=== PATIENT | male | born 1950 | race Caucasian/White ===

== ENCOUNTER 2020-06-21 08:59 | Emergency (ER) | payer MEDICARE, SELFPAY ==
[2020-06-21] VITALS (21 sets, daily range): BP systolic 115–162; BP diastolic 74–96; PULSE 55–67; RESP 13–24; TEMP 36.4; O2SAT 91–100
--- NOTE | 2020-06-21 09:41 | ED_ITS ---
HPI - Skin/Abscess/Foreign Bdy General Chief complaint: Skin/Abscess/Foreign Body Stated complaint: jaundice x1 day Time Seen by Provider: 06/21/20 09:36 Source: patient Mode of arrival: Ambulatory Limitations: no limitations History of Present Illness HPI narrative: This is a 69-year-old male comes to the emergency department with complaint of painless jaundice. Patient states he noticed that his urine was dark earlier in the week, he also notices a little constipated and increased his fluid intake took a stool softener. He states his urine lined up and then became darker again which he noticed yesterday and he noticed that his skin seemed yellow today. He also noticed that her stools were light in color as well. Patient denies any fevers or chills. He denies any chest pain or new shortness of breath. Patient denies any abdominal pain. He does have maybe some mild discomfort but nothing that he really appreciates strongly. He denies any nausea or vomiting. He denies any new diarrhea or black or bloody stools. Besides having some dark urine he does not appreciate any other symptoms or urine changes. Patient has not had similar symptoms in the past. He has never been told he has any liver disease. He takes medication for hypertension and dyslipidemia and used to take a potassium supplement but quit a year ago. Patient has a history of injections in his back. Removal of colon polyps and a history of a pulmonary embolism which they believe was provoked by a marathon of TV watching over 1 weekend. He was on warfarin for several years, did have genetic testing which was negative and no longer takes anticoagulant. His only allergies to penicillins. He is accompanied by his and recently moved to [facility] from [place]. Related Data Home Medications Medication Instructions Recorded Confirmed atenolol-chlorthalidone 1 tab PO DAILY 06/21/20 06/21/20 potassium chloride [Klor-Con M10] meq PO 06/21/20 simvastatin mg 06/21/20 Allergies Allergy/AdvReac Type Severity Reaction Status Date / Time Penicillins Allergy Verified 06/21/20 09:42 Review of Systems Review of Systems ROS Unobtainable: All systems reviewed & are unremarkable except as noted in HPI and below Patient History Medical History (Updated 06/21/20 @ 10:01 by Tamara Mcgraw DO) Pulmonary embolism Social History Smoking Status: Never smoker Exam Narrative Exam Narrative: GEN: well nourished, jaundiced male alert and oriented x 3, patient appears to be in mild distress. HEENT: Atraumatic, pupils are equal round reactive to light,, positive for scleral icterus, extraocular movements are intact, nares are clear, TMs are clear with no fluid, there is no conjunctival pallor. Throat is clear without any exudates, erythema, tonsillar enlargement or uvular deviation HEART: Regular rate and rhythm without murmur, clicks, rubs. No carotid bruits, pulses are equal in upper and lower extremities LUNGS:Lungs clear to auscultation, no wheezes, rales, crackles, chest moves symmetrically ABD:bowel sounds normal, soft, non-tender, no guarding, rebound, rigidity, no masses noted, no hepatosplenomegaly appreciated, mildly distended. :No CVA tenderness MSCL: Non-tender, full range of motion, normal gait NEURO:CN 2-12 intact, sensation normal SKIN: Jaundiced Initial Vital Signs Initial Vital Signs: Vital Signs Temperature 97.5 F L 06/21/20 09:15 Pulse Rate 59 L 06/21/20 09:15 Respiratory Rate 17 06/21/20 09:15 Blood Pressure 162/96 H 06/21/20 09:15 Pulse Oximetry 100 06/21/20 09:15 Course Orders Ordered: ED Orders 06/21/20 14:50 CT abdomen pelvis w con Stat Discontinued Medications Potassium Chloride (Potassium Chloride 20 Meq Tab) 40 meq PO NOW ONE Stop: 06/21/20 10:42 Last Admin: 06/21/20 11:25 Dose: 40 meq Documented by: WINNIE Reevaluation(s) Reevaluation #1: Updated patient on findings from today. Trying to get MRCP here in ED but patient will need transfer for GI. Time: 11:19 Time: 15:26 Consultations Consultation #1: GI recommends CT abdomen with pancreatic protocol and IV contrast. If no obstructing stone patient can be followed up as outpatient. [facility]. Time: 14:55 Consultation #2: Call out to re-consult with GI, Gordon Pratt. Plan for patient to follow up Wednesday. Labs, imaging reports and patient contact information faxed to staff and they will reach out to patient. Recommend outpatient follow up. Plan to follow up on Wednesday with Tyrell GONZALEZ. Time: 17:50 Vital Signs Vital signs: Vital Signs - 8 hr 06/21/20 11:30 06/21/20 11:31 06/21/20 12:31 Pulse Rate 61 61 61 Respiratory Rate 24 Blood Pressure 129/81 Pulse Oximetry 91 99 92 06/21/20 12:33 06/21/20 13:00 06/21/20 13:30 Pulse Rate 59 L 58 L Respiratory Rate 21 15 16 Blood Pressure 118/79 125/74 121/74 Pulse Oximetry 98 98 96 06/21/20 14:00 06/21/20 14:30 06/21/20 15:00 Pulse Rate 58 L 56 L 67 Respiratory Rate 22 13 Blood Pressure 122/78 126/75 Pulse Oximetry 98 95 06/21/20 15:30 06/21/20 16:00 06/21/20 16:21 Pulse Rate 58 L 55 L 65 Respiratory Rate 13 24 Blood Pressure 126/79 Pulse Oximetry 96 95 97 06/21/20 16:30 06/21/20 17:00 Pulse Rate 55 L 67 Respiratory Rate 17 24 Blood Pressure 115/75 126/83 Pulse Oximetry 96 97 MDM - Skin/Abscess/Foreign Bdy Lab Data Attestation: I reviewed the patient's lab results. Result diagrams: 06/21/20 09:42 06/21/20 09:42 Labs: Lab Results 06/21/20 06/21/20 06/21/20 Range/Units 09:37 09:42 09:42 WBC 5.9 (4.5-11.0) X10^3/uL RBC 4.93 (4.5-5.9) X10^6/uL Hgb 15.4 (13.5-17.5) g/dL Hct 45.0 (41-53) % MCV 91.3 (80-100) fL MCH 31.3 (26-34) PG MCHC 34.3 (30-36) % RDW 13.3 (11.6-14.8) % Plt Count 178 (150-400) X10^3/uL Neut % (Auto) 67.9 (50-75) % Lymph % (Auto) 18.7 L (25-40) % Barnes % (Auto) 10.6 (3-14) % Eos % (Auto) 1.9 L (2-4) % Baso % (Auto) 0.9 (0-2) % Neut # (Auto) 4000 (3043-4549) /uL Lymph # (Auto) 1100 (9135-3829) /uL Barnes # (Auto) 600 (0-900) /uL Eos # (Auto) 100 (0-450) /uL Baso # (Auto) 100 (0-100) /uL PT 11.3 (10.1-12.7) SECONDS INR 1.0 (0.9-1.3) APTT 32 (26.4-36.2) SECONDS Sodium (137-145) mmol/L Potassium (3.4-5.1) mmol/L Chloride (98-107) mmol/L Carbon Dioxide (22-32) mmol/L BUN (9-20) mg/dL Creatinine (0.66-1.25) mg/dL Estimated GFR (>60) mL/min BUN/Creatinine Ratio (6-22) Glucose (80-110) mg/dL Calcium (8.4-10.2) mg/dL Total Bilirubin (0.2-1.3) mg/dL Conjugated Bilirubin (0.0-0.3) md/dL Unconjugated Bilirubin (0.0-1.1) mg/dL AST (17-59) IU/L ALT (<50) IU/L Alkaline Phosphatase (38-126) U/L Total Protein (6.3-8.2) g/dL Albumin (3.5-5.0) g/dL Globulin (1.7-4.1) g/dL Albumin/Globulin Ratio (1.0-2.8) Lipase (23-300) U/L Urine Color [place] Urine Appearance Clear Urine pH 6.0 (4.5-8.0) Ur Specific [place] 1.020 (1.000-1.035) Urine Protein Negative (Negative) Urine Glucose (UA) Trace H (Negative) g/dL Urine Ketones Negative (NEGATIVE) Urine Occult Blood Negative (Negative) Urine Nitrate Negative (Negative) Urine Bilirubin 2+ H (NEGATIVE) Ur Bilirubin Confirm Positive H (Negative) Urine Urobilinogen 0.2 (0.2) E.U./dL Ur Leukocyte Esterase Negative (NEGATIVE) Urine RBC None seen (0-5/HPF) Urine WBC None seen (0-5/HPF) Urine Bacteria None seen (None) Ur Culture Indicated? Cult not indicated SARS-CoV-2 (PCR) (Negative) 06/21/20 06/21/20 Range/Units 09:42 09:42 WBC (4.5-11.0) X10^3/uL RBC (4.5-5.9) X10^6/uL Hgb (13.5-17.5) g/dL Hct (41-53) % MCV (80-100) fL MCH (26-34) PG MCHC (30-36) % RDW (11.6-14.8) % Plt Count (150-400) X10^3/uL Neut % (Auto) (50-75) % Lymph % (Auto) (25-40) % Barnes % (Auto) (3-14) % Eos % (Auto) (2-4) % Baso % (Auto) (0-2) % Neut # (Auto) (1864-4831) /uL Lymph # (Auto) (2134-6932) /uL Barnes # (Auto) (0-900) /uL Eos # (Auto) (0-450) /uL Baso # (Auto) (0-100) /uL PT (10.1-12.7) SECONDS INR (0.9-1.3) APTT (26.4-36.2) SECONDS Sodium 136 L (137-145) mmol/L Potassium 3.1 L (3.4-5.1) mmol/L Chloride 99 (98-107) mmol/L Carbon Dioxide 28 (22-32) mmol/L BUN 15 (9-20) mg/dL Creatinine 0.77 (0.66-1.25) mg/dL Estimated GFR > 60.0 (>60) mL/min BUN/Creatinine Ratio 19.5 (6-22) Glucose 112 H (80-110) mg/dL Calcium 9.8 (8.4-10.2) mg/dL Total Bilirubin 9.5 H (0.2-1.3) mg/dL Conjugated Bilirubin 5.0 H (0.0-0.3) md/dL Unconjugated Bilirubin 1.9 H (0.0-1.1) mg/dL AST 447 H (17-59) IU/L ALT 751 H (<50) IU/L Alkaline Phosphatase 203 H (38-126) U/L Total Protein 7.9 (6.3-8.2) g/dL Albumin 4.5 (3.5-5.0) g/dL Globulin 3.4 (1.7-4.1) g/dL Albumin/Globulin Ratio 1.3 (1.0-2.8) Lipase 276 (23-300) U/L Urine Color Urine Appearance Urine pH (4.5-8.0) Ur Specific [place] (1.000-1.035) Urine Protein (Negative) Urine Glucose (UA) (Negative) g/dL Urine Ketones (NEGATIVE) Urine Occult Blood (Negative) Urine Nitrate (Negative) Urine Bilirubin (NEGATIVE) Ur Bilirubin Confirm (Negative) Urine Urobilinogen (0.2) E.U./dL Ur Leukocyte Esterase (NEGATIVE) Urine RBC (0-5/HPF) Urine WBC (0-5/HPF) Urine Bacteria (None) Ur Culture Indicated? SARS-CoV-2 (PCR) Negative (Negative) Imaging Data US - abdomen: Attestation: I personally reviewed and interpreted this imaging study as follows: Radiologist's Impression: Rell Soliman H 69 M 1950 [place], [place] [address]Ultrasound ReportSigned Patient: Rell Soliman R#: [id number]: 1950Acct:[id number]/Sex: 69 / MDate of Service: 06/21/20Loc: EDAccession Number: [id number] Procedure: US abdomen limited Ordering Provider: Tamara Mcgraw D.O. PROCEDURE: US ABDOMEN LIMITED INDICATIONS: PAINLESS JAUNDICE TECHNIQUE: Real-time scanning was performed of the abdominal and retroperitoneal organs, with image documentation. COMPARISON: None. FINDINGS: Liver: Liver is normal in size and homogeneous in echotexture. There are 2 septated cyst in the left hepatic lobe. 1 measures 1.8 x 1.3 x 2.2 cm. The 2nd more anteriorly in the left hepatic lobe measures 2.5 x 1.9 x 2.5 cm. Gallbladder: Gallbladder contains layering sludge without wall thickening, pericholecystic fluid, or abnormal sonographic Keller sign. No gallstones are identified. Biliary ducts: Intrahepatic bile ducts are non-dilated. Extrahepatic bile duct caliber measures 12 mm. Normal is 6-7 mm or less in diameter, or 10 mm or less post-cholecystectomy. No evidence for intraluminal filling defects within the common bile duct. No evidence for choledocholithiasis or mass lesions. Pancreas: Pancreas not well visualized secondary to bowel gas. Miscellaneous: No free abdominal fluid. IMPRESSION: 1. Gallbladder sludge. No sonographic evidence for cholelithiasis or acute cholecystitis. 2. Prominent common bile duct measuring approximately 12 mm in size without evidence for choledocholithiasis or obstructing mass lesions. No intrahepatic biliary ductal dilatation. Consider further evaluation with nonemergent MRCP or ERCP. 3. There are 2 minimally complicated hepatic cysts containing thin internal septation. Dictated by: Prosper Lux M.D. on 06/21/2020 at 9:57 Approved by: Prosper Lux M.D. on 06/21/2020 at 10:02 CT scan - abdomen/pelvis: Radiologist's Impression: [address] Scan ReportSigned Patient: Rell Soliman R#: [id number]: 1950Acct:[id number]/Sex: 69 / MDate of Service: 06/21/20Loc: EDAccession Number: [id number] Procedure: CT abdomen pelvis w con Ordering Provider: Tamara Mcgraw D.O. PROCEDURE: CT ABDOMEN PELVIS W CON INDICATIONS: painless jaundice, pancreatic protocol per GI request. TECHNIQUE: After the administration of intravenous contrast, 5 mm thick sections acquired from the diaphragm to the symphysis. 5 mm coronal and sagittal reformats were acquired. For radiation dose reduction, the following was used: automated exposure control, adjustment of mA and/or kV according to patient size. COMPARISON: None. FINDINGS: Lower thorax: There has at least 4 separate peripheral pulmonary nodules in the right lung base, each measuring 2-3 mm. Small pulmonary cysts noted in the left lower lobe and right lower lobe as well measuring less than 1.4 cm Liver : The liver is diffusely decreased in attenuation without focal mass lesion. Multiple patent could simple cysts measure up to 2 cm. Biliary system: Gallbladder is within normal limits without evidence of pericholecystic inflammatory change. Common bile duct is dilated at 1.3 cm. No obstructing calcified lesion present. Pancreas: Unremarkable without mass or inflammation evident. Spleen: Spleen is normal in size. There is diffuse patchy enhancement which may related to phase of enhancement. Adrenals: Normal morphology and density. Reproductive system: Unremarkable as visualized. Urinary system: Both kidneys appropriate in size and attenuation. There is a 5.5 cm fat containing exophytic solid mass lesion arising from the mid left kidney consistent with angiomyolipoma. Small 1.2 cm right renal cortical cyst. No evidence of obstructive uropathy. Gastrointestinal system: The bowel appears unremarkable with no evidence of bowel obstruction or inflammation. The stomach appears unremarkable. Multiple diverticula arise from the sigmoid colon without evidence of diverticulitis. Appendix: Normal appendix identified. No evidence of appendicitis. Peritoneal spaces: No intra- or retroperitoneal adenopathy. No free air. No free fluid. Vasculature: Atherosclerotic calcification in the abdominal aorta without evidence of aneurysm. Musculoskeletal: Normal bone mineralization. No acute fractures. Abdominal wall intact without evidence of ventral or inguinal hernias. Mild multilevel degenerative disc disease and arthropathy of the lower lumbar spine. IMPRESSION: 1. Dilated common bile duct measures up to 1.3 cm without calcified obstructing lesion. Consider follow-up MRCP 2. 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 No obstructive uropathy. 3. Non-specific patchy enhancement of the spleen may be related to phase of enhancement. Consider follow-up ultrasound for further evaluation. 4. Small peripheral pulmonary nodules in the right lung base each measure less than 3 mm. No follow-up is necessary in a low risk patient. Otherwise, consider 12 month of followup. Dictated by: Danilo Burdick M.D. on 06/21/2020 at 15:39 Approved by: Danilo Burdick M.D. on 06/21/2020 at 15:59 ECG Data Attestation: I personally reviewed and interpreted this ECG as follows: Prior ECG tracings: not available for review Interpretation: Sinus bradycardia with first-degree AV block. Rate of 55 IN interval of 210, QRS of 108 QTC of 419. No acute ST changes depression appreciated. Possible LVH. No prior EKG available for comparison. MDM Narrative Medical decision making narrative: This is a 69 old male who presents with painless jaundice. Patient appreciated skin color changes yesterday and worsening today. Patient has not had any known prior liver disease. He did notice some darkish urine the last several days and some light-colored stools recently. Patient's labs show elevated LFTs including bilirubin, AST, ALT alk phos with a normal lipase. Patient had is afebrile, without any other abdominal complaints at this time. Patient's ultrasound imaging shows some cysts, mildly dilated common bile duct at 12 mm and no other clear acute findings. Discussed obtaining an MRCP which patient was willing but patient for but ultimately refused as he states he is claustrophobic and did not feel comfortable attempting with medication after going to MRI suite. Patient return to the department, attempted to contact Gastroenterology at several hospitals some of which were full. Including [facility] which was patient's initial preference, [facility]. Spoke with GI who requests CT with pancreatic protocol and will review but suspects patient can follow up as outpatient in the short term unless signs of obstruction at the CBD. These are not present and it is not follow-up patient assessed at [facility] an ERCP presently. Patient is to follow up on Wednesday. Contact information was given to the [facility] Gastroenter[facility]. All labs as well as reports were faxed and patient was also given a disc of images. We discussed strict return precautions and signs symptoms to watch for. All questions were answered. Discharge Plan Departure Patient Disposition: Home Clinical Impression: Jaundice Activity Restrictions/Additional Instructions: Follow up gastroenterology on Wednesday. The GI office is going to contact you. If you have not heard back by Wednesday afternoon please call the emergency department so we can help you connect with [facility] via [place]. The office number is [phone] for [facility]. Take the disk of images with you to your appointment. You may continue your home medications as prescribed. Avoid any tylenol or alcohol. Please return for fevers, new abdominal pain, lightheadedness or passing out, altered mental status or confusion, persistent vomiting, black or bloody stools or other new or concerning symptoms. Prescriptions: No Action atenolol-chlorthalidone 100-25 mg tablet 1 tab PO DAILY RF: 0 potassium chloride [Klor-Con M10] 10 mEq tablet,ER particles/crystals PO RF: 0 simvastatin 40 mg tablet RF: 0 Referrals: Gordon Bosch MD [Non-Staff] -
[2020-06-21 09:56] LABS: Bacteria Urine None Seen; RBC Urine None Seen (0-5/HPF); WBC Urine None Seen (0-5/HPF)
--- NOTE | 2020-06-21 09:56 | DI.US.S_ITS ---
PROCEDURE: US ABDOMEN LIMITED INDICATIONS: PAINLESS JAUNDICE TECHNIQUE: Real-time scanning was performed of the abdominal and retroperitoneal organs, with image documentation. COMPARISON: None. FINDINGS: Liver: Liver is normal in size and homogeneous in echotexture. There are 2 septated cyst in the left hepatic lobe. 1 measures 1.8 x 1.3 x 2.2 cm. The 2nd more anteriorly in the left hepatic lobe measures 2.5 x 1.9 x 2.5 cm. Gallbladder: Gallbladder contains layering sludge without wall thickening, pericholecystic fluid, or abnormal sonographic Keller sign. No gallstones are identified. Biliary ducts: Intrahepatic bile ducts are non-dilated. Extrahepatic bile duct caliber measures 12 mm. Normal is 6-7 mm or less in diameter, or 10 mm or less post-cholecystectomy. No evidence for intraluminal filling defects within the common bile duct. No evidence for choledocholithiasis or mass lesions. Pancreas: Pancreas not well visualized secondary to bowel gas. Miscellaneous: No free abdominal fluid. IMPRESSION: 1. Gallbladder sludge. No sonographic evidence for cholelithiasis or acute cholecystitis. 2. Prominent common bile duct measuring approximately 12 mm in size without evidence for choledocholithiasis or obstructing mass lesions. No intrahepatic biliary ductal dilatation. Consider further evaluation with nonemergent MRCP or ERCP. 3. There are 2 minimally complicated hepatic cysts containing thin internal septation. Dictated by: Prosper Lux M.D. on 06/21/2020 at 9:57 Approved by: Prosper Lux M.D. on 06/21/2020 at 10:02
[2020-06-21 09:58] LABS: Add Manual Diff / Slide Review NO; Basophils Absolute Auto 100 /uL (0-100); Basophils Percent Auto 0.9 % (0-2); Eosinophils Absolute Auto 100 /uL (0-450); Eosinophils Percent Auto 1.9 % (2-4); Hemoglobin 15.4 g/dL (13.5-17.5); Lymphocytes Absolute Auto 1100 /uL (1100-4500); Lymphocytes Percent Auto 18.7 % (25-40); Mean Corpuscular HGB Conc 34.3 % (30-36); Mean Corpuscular Hemoglobin 31.3 PG (26-34); Mean Corpuscular Volume 91.3 fL (80-100); Monocytes Absolute Auto 600 /uL (0-900); Monocytes Percent Auto 10.6 % (3-14); Neutrophils Absolute Auto 4000 /uL (1500-7000); Neutrophils Percent Auto 67.9 % (50-75); Platelet Count 178 X10^3/uL (150-400); Red Blood Cell Count 4.93 X10^6/uL (4.5-5.9); Red Cell Distribution Width 13.3 % (11.6-14.8); White Blood Cell Count 5.9 X10^3/uL (4.5-11.0)
[2020-06-21 10:03] LABS: Appearance Urine UA CLEAR; Bilirubin Urine UA 2+ (NEGATIVE); Color Urine UA ORANGE; Glucose Urine UA TRACE g/dL (Negative); Ketones Urine UA NEGATIVE (NEGATIVE); Leukocyte Esterase Urine UA NEGATIVE (NEGATIVE); Nitrite Urine UA NEGATIVE (Negative); Occult Blood Urine UA NEGATIVE (Negative); Protein Urine UA NEGATIVE (Negative); Urobilinogen Urine UA 0.2 E.U./dL (0.2)
[2020-06-21 10:03] LABS: Prothrombin Time 11.3 SECONDS (10.1-12.7)
[2020-06-21 10:06] LABS: PTT Partial Thromboplastin Tim 32 SECONDS (26.4-36.2)
[2020-06-21 10:06] LABS: Ictotest Urine Positive (Negative)
[2020-06-21 10:08] LABS: Culture Indicated Urine Cult Not Indicated
[2020-06-21 10:09] LABS: Albumin 4.5 g/dL (3.5-5.0); Albumin Globulin Ratio 1.3 (1.0-2.8); Alkaline Phosphatase 203 U/L (38-126); Aspartate Aminotransferase 447 IU/L (17-59); BUN Creatinine Ratio 19.5 (6-22); Bilirubin Total 9.5 mg/dL (0.2-1.3); Bilirubin Unconjugated 1.9 mg/dL (0.0-1.1); Blood Urea Nitrogen 15 mg/dL (9-20); Calcium 9.8 mg/dL (8.4-10.2); Carbon Dioxide 28 mmol/L (22-32); Chloride 99 mmol/L (98-107); Estimated Glomerular Filt Rate > 60.0 mL/min (>60); Globulin 3.4 g/dL (1.7-4.1); Glucose 112 mg/dL (80-110); HEMOLYSIS < 15 (0-50); Lipase 276 U/L (23-300); Potassium 3.1 mmol/L (3.4-5.1); Sodium 136 mmol/L (137-145); Total Protein 7.9 g/dL (6.3-8.2)
[2020-06-21 10:17] LABS: Alanine Aminotransferase 751 IU/L (<50)
[2020-06-21 10:41] LABS: COVID19 - ADMIT (NP swab/PCR) Negative (Negative)
--- NOTE | 2020-06-21 11:17 | PC.NURSE ---
Pt states he noticed generalized jaundice of skin and sclera last night. Noticed generalized abd bloating today w/o focal pain. Denies recent travel / eating out. a/o x 4. BS equal and clear. + bowel sounds. Moving all extremities equally well. Skin turger normal to dry. voiding quantitiy sufficient and not less / more than normal for patient. Pt does state his urine has been dark.
[2020-06-21] MEDS: POTASSIUM CHLORIDE 20 MEQ TAB 40 MEQ PO (11:25)
--- NOTE | 2020-06-21 12:14 | PC.NURSE ---
Pt to DI for MRCP.
--- NOTE | 2020-06-21 14:50 | DI.CT.S_ITS ---
PROCEDURE: CT ABDOMEN PELVIS W CON INDICATIONS: painless jaundice, pancreatic protocol per GI request. TECHNIQUE: After the administration of intravenous contrast, 5 mm thick sections acquired from the diaphragm to the symphysis. 5 mm coronal and sagittal reformats were acquired. For radiation dose reduction, the following was used: automated exposure control, adjustment of mA and/or kV according to patient size. COMPARISON: None. FINDINGS: Lower thorax: There has at least 4 separate peripheral pulmonary nodules in the right lung base, each measuring 2-3 mm. Small pulmonary cysts noted in the left lower lobe and right lower lobe as well measuring less than 1.4 cm Liver : The liver is diffusely decreased in attenuation without focal mass lesion. Multiple patent could simple cysts measure up to 2 cm. Biliary system: Gallbladder is within normal limits without evidence of pericholecystic inflammatory change. Common bile duct is dilated at 1.3 cm. No obstructing calcified lesion present. Pancreas: Unremarkable without mass or inflammation evident. Spleen: Spleen is normal in size. There is diffuse patchy enhancement which may related to phase of enhancement. Adrenals: Normal morphology and density. Reproductive system: Unremarkable as visualized. Urinary system: Both kidneys appropriate in size and attenuation. There is a 5.5 cm fat containing exophytic solid mass lesion arising from the mid left kidney consistent with angiomyolipoma. Small 1.2 cm right renal cortical cyst. No evidence of obstructive uropathy. Gastrointestinal system: The bowel appears unremarkable with no evidence of bowel obstruction or inflammation. The stomach appears unremarkable. Multiple diverticula arise from the sigmoid colon without evidence of diverticulitis. Appendix: Normal appendix identified. No evidence of appendicitis. Peritoneal spaces: No intra- or retroperitoneal adenopathy. No free air. No free fluid. Vasculature: Atherosclerotic calcification in the abdominal aorta without evidence of aneurysm. Musculoskeletal: Normal bone mineralization. No acute fractures. Abdominal wall intact without evidence of ventral or inguinal hernias. Mild multilevel degenerative disc disease and arthropathy of the lower lumbar spine. IMPRESSION: 1. Dilated common bile duct measures up to 1.3 cm without calcified obstructing lesion. Consider follow-up MRCP 2. 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 No obstructive uropathy. 3. Non-specific patchy enhancement of the spleen may be related to phase of enhancement. Consider follow-up ultrasound for further evaluation. 4. Small peripheral pulmonary nodules in the right lung base each measure less than 3 mm. No follow-up is necessary in a low risk patient. Otherwise, consider 12 month of followup. Dictated by: Danilo Burdick M.D. on 06/21/2020 at 15:39 Approved by: Danilo Burdick M.D. on 06/21/2020 at 15:59
[2020-06-22 09:32] LABS: HBsAg Screen Negative (Negative); Hepatitis A Antibody IgM Negative (Negative); Hepatitis B Core Antibody IgM Negative (Negative); Hepatitis C Antibody <0.1 s/co ratio (0.0-0.9)
== END 2020-06-21 17:53 | disposition home or self-care (01) ==
PROVIDERS: Emergency Provider Emergency Medicine
DX: R17 Unspecified jaundice (principal); R10.9 Unspecified abdominal pain; Z20.822 Contact with and (suspected) exposure to COVID-19
CPT/HCPCS: 36415; 74177; 76705; 80048; 80074; 80076; 81001; 83690; 85025; 85610; 85730; 87635; 93005; 93010; 99284; C9803; Q9967

== ENCOUNTER → 2020-08-09 10:19 | Outpatient (CLI) | payer MEDICARE, SELFPAY | PROVIDERS: PCP Family Medicine; Referring Provider Internal Medicine Infectious Disease; Visit Provider Internal Medicine Infectious Disease | DX: R78.81 Bacteremia (principal) | CPT/HCPCS: 36415; 87040 ==

== ENCOUNTER → 2020-09-16 09:42 | Outpatient (CLI) | payer MEDICARE, SELFPAY ==
[2020-09-16 19:57] LABS: Add Manual Diff / Slide Review NO; Basophils Absolute Auto 0 /uL (0-100); Basophils Percent Auto 0.4 % (0-2); Eosinophils Absolute Auto 300 /uL (0-450); Eosinophils Percent Auto 4.2 % (2-4); Hematocrit 38.3 % (41-53); Hemoglobin 13.7 g/dL (13.5-17.5); Lymphocytes Absolute Auto 800 /uL (1100-4500); Mean Corpuscular HGB Conc 35.7 % (30-36); Mean Corpuscular Hemoglobin 31.6 PG (26-34); Mean Corpuscular Volume 88.7 fL (80-100); Monocytes Absolute Auto 400 /uL (0-900); Monocytes Percent Auto 6.5 % (3-14); Neutrophils Absolute Auto 4800 /uL (1500-7000); Neutrophils Percent Auto 76.9 % (50-75); Platelet Count 185 X10^3/uL (150-400); Red Blood Cell Count 4.31 X10^6/uL (4.5-5.9); Red Cell Distribution Width 12.9 % (11.6-14.8); White Blood Cell Count 6.3 X10^3/uL (4.5-11.0)
[2020-09-16 20:07] LABS: Alanine Aminotransferase 74 IU/L (<50); Albumin 3.3 g/dL (3.5-5.0); Albumin Globulin Ratio 1.2 (1.0-2.8); Alkaline Phosphatase 148 U/L (38-126); Aspartate Aminotransferase 62 IU/L (17-59); BUN Creatinine Ratio 23.9 (6-22); Bilirubin Total 0.8 mg/dL (0.2-1.3); Blood Urea Nitrogen 16 mg/dL (9-20); Calcium 9.1 mg/dL (8.4-10.2); Carbon Dioxide 31 mmol/L (22-32); Chloride 98 mmol/L (98-107); Estimated Glomerular Filt Rate > 60.0 mL/min (>60); Globulin 2.8 g/dL (1.7-4.1); Glucose 126 mg/dL (80-110); HEMOLYSIS < 15 (0-50); Potassium 3.5 mmol/L (3.4-5.1); Sodium 133 mmol/L (137-145); Total Protein 6.1 g/dL (6.3-8.2)
[2020-09-16 20:17] LABS: Cholesterol 139 mg/dL (140-199); HDL Cholesterol 51 mg/dL (40-60); LDL Cholesterol Calculated 65 mg/dL (<100); Triglycerides 113 mg/dL (35-150)
== END ==
PROVIDERS: PCP Family Medicine; Visit Provider Internal Medicine Hematology & Oncology
DX: C25.9 Malignant neoplasm of pancreas, unspecified (principal); Z13.220 Encounter for screening for lipoid disorders
CPT/HCPCS: 80053; 80061; 85025

== ENCOUNTER → 2020-09-30 17:37 | Outpatient (CLI) | payer MEDICARE, SELFPAY ==
[2020-09-30 18:34] LABS: Alanine Aminotransferase 129 IU/L (<50); Albumin 3.5 g/dL (3.5-5.0); Albumin Globulin Ratio 1.1 (1.0-2.8); Alkaline Phosphatase 227 U/L (38-126); Aspartate Aminotransferase 112 IU/L (17-59); BUN Creatinine Ratio 25.4 (6-22); Bilirubin Total 0.4 mg/dL (0.2-1.3); Blood Urea Nitrogen 18 mg/dL (9-20); Calcium 8.8 mg/dL (8.4-10.2); Carbon Dioxide 27 mmol/L (22-32); Chloride 102 mmol/L (98-107); Estimated Glomerular Filt Rate > 60.0 mL/min (>60); Globulin 3.1 g/dL (1.7-4.1); Glucose 107 mg/dL (80-110); HEMOLYSIS < 15 (0-50); Potassium 3.5 mmol/L (3.4-5.1); Sodium 135 mmol/L (137-145); Total Protein 6.6 g/dL (6.3-8.2)
[2020-09-30 19:38] LABS: Add Manual Diff / Slide Review YES; Hematocrit 39.6 % (41-53); Hemoglobin 13.5 g/dL (13.5-17.5); Mean Corpuscular Hemoglobin 30.2 PG (26-34); Mean Corpuscular Volume 88.9 fL (80-100); Platelet Count 212 X10^3/uL (150-400); Red Blood Cell Count 4.45 X10^6/uL (4.5-5.9); Red Cell Distribution Width 12.7 % (11.6-14.8); White Blood Cell Count 6.2 X10^3/uL (4.5-11.0)
[2020-09-30 19:41] LABS: Neutrophils Absolute Manual 3472 /uL (3000-5900); Total Cells Counted 100
[2020-09-30 19:42] LABS: Dohle Bodies 1+; RBC Morphology Normal Morphology; Toxic Granulation Present
== END ==
PROVIDERS: PCP Family Medicine; Referring Provider Physician Assistant Medical; Visit Provider Physician Assistant Medical
DX: C25.9 Malignant neoplasm of pancreas, unspecified (principal)
CPT/HCPCS: 36415; 80053; 85007; 85025

== ENCOUNTER → 2020-10-14 14:05 | Outpatient (CLI) | payer MEDICARE, SELFPAY ==
[2020-10-14 19:34] LABS: Hematocrit 41.5 % (41-53); Hemoglobin 14.3 g/dL (13.5-17.5); Mean Corpuscular HGB Conc 34.4 % (30-36); Mean Corpuscular Hemoglobin 30.2 PG (26-34); Mean Corpuscular Volume 87.9 fL (80-100); Platelet Count 164 X10^3/uL (150-400); Red Blood Cell Count 4.72 X10^6/uL (4.5-5.9); Red Cell Distribution Width 12.9 % (11.6-14.8); White Blood Cell Count 4.9 X10^3/uL (4.5-11.0)
[2020-10-14 19:35] LABS: Alanine Aminotransferase 64 IU/L (<50); Albumin 3.7 g/dL (3.5-5.0); Albumin Globulin Ratio 1.3 (1.0-2.8); Alkaline Phosphatase 238 U/L (38-126); Aspartate Aminotransferase 72 IU/L (17-59); BUN Creatinine Ratio 34.4 (6-22); Bilirubin Total 0.5 mg/dL (0.2-1.3); Blood Urea Nitrogen 22 mg/dL (9-20); Calcium 9.4 mg/dL (8.4-10.2); Carbon Dioxide 26 mmol/L (22-32); Chloride 101 mmol/L (98-107); Estimated Glomerular Filt Rate > 60.0 mL/min (>60); Globulin 2.9 g/dL (1.7-4.1); Glucose 122 mg/dL (80-110); HEMOLYSIS 32 (0-50); Potassium 3.9 mmol/L (3.4-5.1); Sodium 135 mmol/L (137-145); Total Protein 6.6 g/dL (6.3-8.2)
[2020-10-14 19:45] LABS: Add Manual Diff / Slide Review YES
[2020-10-14 20:19] LABS: Neutrophils Absolute Manual 2450 /uL (3000-5900); Total Cells Counted 100
[2020-10-14 20:20] LABS: Platelet Estimate Adequate on smear; RBC Morphology Normal Morphology
== END ==
PROVIDERS: PCP Family Medicine; Referring Provider Internal Medicine Hematology & Oncology; Visit Provider Internal Medicine Hematology & Oncology
DX: C25.9 Malignant neoplasm of pancreas, unspecified (principal)
CPT/HCPCS: 80053; 85007; 85025